=== PATIENT | female | born 1935 | race Native Hawaiian/Other Pacific Islander ===

== ENCOUNTER 2017-07-22 06:09 | Observation (INO) | payer MEDICARE, OTHER ==
[2017-07-22] MEDS ORDERED: Sodium Chloride 0.9% 1,000 ML IV SCH ×2 (07:30→13:00)
--- NOTE | 2017-07-22 07:30 | C.PDOC ---
History Of Present Illness 81 y/o female presents to the ER complaining of abdominal pain and watery diarrhea which has been present for the past 2 days. Patient states that she feels a bloating sensation. Patient denies having vomiting, dysuria, hematuria, hematochezia ,recent abx use, and recent travel. Time Seen by Provider: 07/22/17 07:12 Chief Complaint (Nursing): Abdominal Pain History Per: Patient History/Exam Limitations: no limitations Onset/Duration Of Symptoms: Days Current Symptoms Are (Timing): Still Present Severity: Moderate Associated Symptoms: Diarrhea. denies: Fever, Chills, Nausea, Vomiting, Urinary Symptoms Past Medical History Reviewed: Historical Data, Nursing Documentation, Vital Signs Vital Signs: Last Vital Signs Temp 98.7 F 07/22/17 09:32 Pulse 62 07/22/17 09:32 Resp 16 07/22/17 09:32 BP 106/65 07/22/17 09:32 Pulse Ox 96 07/22/17 09:50 - Medical History PMH: No Chronic Diseases Other Surgeries: Hx of surgeries - [employer] Procedures ENDOSC POLYPECTOMY OF LG INTEST (08/06/03) ESOPHAGOGASTRODUODENOSCOPY [EGD] W/CLOSED BIOPSY (08/06/03) Family History: States: No Known Family Hx - Social History Hx Alcohol Use: No Hx Substance Use: No - Immunization History Hx Tetanus Toxoid Vaccination: No Hx Influenza Vaccination: Yes Hx Pneumococcal Vaccination: No Review Of Systems Except As Marked, All Systems Reviewed And Found Negative. Constitutional: Negative for: Fever, Chills Gastrointestinal: Positive for: Abdominal Pain, Diarrhea. Negative for: Vomiting, Hematochezia Genitourinary: Negative for: Dysuria, Hematuria Physical Exam - Physical Exam Appears: Non-toxic, No Acute Distress Skin: Normal Color, Warm, Dry Head: Atraumatic, Normacephalic Eye(s): bilateral: Normal Inspection Nose: Normal Oral Mucosa: Moist Neck: Supple Chest: Symmetrical Cardiovascular: Rhythm Regular Respiratory: Normal Breath Sounds, No Rales, No Rhonchi, No Wheezing Gastrointestinal/Abdominal: Bowel Sounds ((+) bowel sounds), Soft, Tenderness ( diffuse tenderness), No Guarding, No Rebound Extremity: Normal ROM Neurological/Psych: Oriented x3, Normal Speech ED Course And Treatment - Laboratory Results Result Diagrams: 07/22/17 07:34 07/22/17 07:34 ECG: Interpreted By Me, Viewed By Me ECG Rhythm: Sinus Rhythm ECG Interpretation: Normal Interpretation Of ECG: NSR with normal intervals, normal axises, and no ST/ T wave abnormalities Rate From EC O2 Sat by Pulse Oximetry: 96 (RA) Pulse Ox Interpretation: Normal - Other Rad CXR X-Ray: Viewed By Me, Read By Radiologist Interpretation: PROCEDURE: CHEST RADIOGRAPH, 1 VIEW. HISTORY: Abdominal pain. COMPARISON: None available. FINDINGS: LUNGS: The lungs are well inflated and clear. PLEURA: No pneumothorax. There is blunting of the left costophrenic angle. CARDIOVASCULAR: Normal. OSSEOUS STRUCTURES: There is an old fracture deformity in the left posterior 5th rib. VISUALIZED UPPER ABDOMEN : Normal. OTHER FINDINGS: None. IMPRESSION: No active pulmonary disease. Blunting of the left costophrenic angle may represent pleural thickening or small pleural effusion Medical Decision Making Medical Decision Making: Assessment: Abdominal Pain/ Diarrhea Plan: --Labs --UA --ECG --CXR --CT - Abd & Pelv. -- IV Fluids --Protonix IV Disposition Discussed With Dr.: Lindsay Meier Doctor Will See Patient In The: Hospital Counseled Patient/Family Regarding: Studies Performed, Diagnosis - Disposition Disposition: HOSPITALIZED Disposition Time: 11:59 Condition: FAIR Forms: [facility] (Korean) - Clinical Impression Clinical Impression: Abdominal pain, Diarrhea - Scribe Statement The provider has reviewed the documentation as recorded by the Margarito Aguayo Provider Attestation: All medical record entries made by the Scribe were at my direction and personally dictated by me. I have reviewed the chart and agree that the record accurately reflects my personal performance of the history, physical exam, medical decision making, and the department course for this patient. I have also personally directed, reviewed, and agree with the discharge instructions and disposition.
[2017-07-22] MEDS ORDERED: Sodium Chloride 0.9% 1,000 ML ONE (07:35)
[2017-07-22 07:42] LABS: BASO % 0.6 % (0.0-2.0); EOS # 0.2 K/uL (0.0-0.7); EOS % 3.9 % (0.0-4.0); HEMOGLOBIN 12.6 g/dL (11.0-16.0); LYMPH # 1.6 K/uL (1.0-4.3); LYMPH % 25.9 % (20.0-40.0); MEAN CELL VOLUME 93.9 fL (81.0-99.0); MEAN CORPUSCULAR HGB CONC 34.1 g/dL (33.0-37.0); MEAN PLATELET VOLUME 7.5 fL (7.2-11.7); MONO # 0.4 K/uL (0.0-0.8); NEUT % 63.6 % (50.0-75.0); RBC 3.95 Mil/uL (3.80-5.20); RED CELL DISTRIBUTION WIDTH 13.4 % (11.5-14.5); WHITE BLOOD COUNT 6.3 K/uL (4.8-10.8)
[2017-07-22 07:53] LABS: ALB/GLOB RATIO 1.3 (1.0-2.1); ALBUMIN 4.2 g/dL (3.5-5.0); ALT/SGPT 15 U/L (9-52); AST/SGOT 29 U/L (14-36); BLOOD UREA NITROGEN 11 mg/dL (7-17); CALCIUM 8.5 mg/dl (8.6-10.4); GFR AFRICAN-AMERICAN > 60; GFR NON-AFRICAN AMERICAN > 60; LIPASE 163 U/L (23-300)
--- NOTE | 2017-07-22 08:44 | RAD ---
PROCEDURE: CHEST RADIOGRAPH, 1 VIEW HISTORY: Abdominal pain COMPARISON: None available. FINDINGS: LUNGS: The lungs are well inflated and clear. PLEURA: No pneumothorax. There is blunting of the left costophrenic angle. CARDIOVASCULAR: Normal. OSSEOUS STRUCTURES: There is an old fracture deformity in the left posterior 5th rib. VISUALIZED UPPER ABDOMEN: Normal. OTHER FINDINGS: None. IMPRESSION: No active pulmonary disease. Blunting of the left costophrenic angle may represent pleural thickening or small pleural effusion
[2017-07-22 08:54] LABS: URINE BILIRUBIN NEGATIVE (NEGATIVE); URINE BLOOD NEGATIVE (NEGATIVE); URINE CLARITY Clear (Clear); URINE COLOR Straw (YELLOW); URINE GLUCOSE (UA) NORMAL (Normal); URINE LEUKOCYTE ESTERASE NEG Leu/uL (Negative); URINE PROTEIN NEGATIVE (NEGATIVE); URINE UROBILINOGEN NORMAL mg/dL (0.2-1.0)
[2017-07-22] MEDS ORDERED: Iodixanol 320 MG/ML 100 ML BOTTLE IV ONE (09:31)
--- NOTE | 2017-07-22 11:16 | CT ---
PROCEDURE: CT scan abdomen pelvis dated 07/22/2017 HISTORY: Abdominal pain COMPARISON: None. TECHNIQUE: Contiguous axial images of the abdomen and pelvis performed following intravenous injection of approximately 100 cc Visipaque 320 contrast material. Additional 2D sagittal and coronal reformats generated. Radiation dose: Total exam DLP = 285.26 mGy-cm. This CT exam was performed using one or more of the following dose reduction techniques: Automated exposure control, adjustment of the mA and/or kV according to patient size, and/or use of iterative reconstruction technique. . Comparison made with prior CT scan of the chest abdomen pelvis 12/14/2011. FINDINGS: LOWER THORAX: Minor passive/dependent type atelectasis seen in the right lung base. There also appears to be some irregular scarring changes in the left lung base. No evidence of effusion or basilar pneumothorax Heart size within range of normal. No significant pericardial effusion. . There is a small hiatal hernia. LIVER: Liver exhibits normal size measuring approximately 11.6 cm in CC dimension. Mild diffuse fatty hepatic infiltration. There is a small approximately 10.7 x 5.3 mm elliptical shaped focus low attenuation superior aspect left lobe liver bordering the diaphragm that exhibits Hounsfield units in the mid 20s. This may represent a small hyperdense cyst or hemangioma though was present on the prior exam. This focus was larger on the prior study measuring approximately 19 mm x 12 mm however size differences could be related to the changes in patient positioning/slice placement versus true decrease in size in the lesion. Additionally, also again noted is an approximately 17 mm x 14 mm rounded/elliptical shaped heterogeneously enhancing lesion in the anterior superior margin left lobe liver that was present on the prior exam and probably represents a hemangioma of which appears relatively stable allowing for differences patient positioning and slice placement. GALLBLADDER AND BILE DUCTS: Gallbladder appears incompletely distended which may account for slight thick-walled appearance. Clinical correlation recommended to exclude the possibility of mild chronic inflammation. . No obvious intraluminal gallbladder calculi PANCREAS: Pancreas it is atrophic though otherwise grossly unremarkable without masses collections or significant ductal dilatation. No obvious pancreatic calcifications. SPLEEN: Spleen exhibits normal size and attenuation pattern without masses collections or calcifications. ADRENALS: No adrenal lesions. KIDNEYS AND URETERS: Kidneys demonstrate relatively symmetric nephrograms. . No stone or hydronephrosis. There is a tiny approximately 5.8 mm cortical cyst upper pole left kidney. Exophytic cyst arising from the lateral upper/ midpole left kidney measures approximately 2.4 x 1.9 cm. There is also a very tiny approximately 4.9 mm elliptical shaped low-attenuation medial cortex upper pole left kidney which most likely represent small cysts as well with Hounsfield units in the negative low double digits. In the BLADDER: Urinary bladder is markedly distended. In addition, there appears to be a small bladder diverticula arising from the right posterolateral margin of the urinary bladder. No evidence of intraluminal urinary bladder calculi. REPRODUCTIVE: Uterus appears unremarkable. APPENDIX: What appears to represent normal appendix best seen on axial series 3 image number [id number]. . BOWEL: Evaluation of the bowel is limited due to the lack of oral contrast material. Stomach is incompletely distended which in part accounts for thick-walled appearance. Gastritis or other intrinsic invasive wall lesion not excluded. There is a rounded approximately 15.8 x 14.5 mm soft tissue density that appears to abut and possibly arise from the serosal surface of the cardia of the stomach which also appears to abut the left adrenal gland. This focus of uncertain etiology though could conceivably represent a gastric serosal surface. Clinical correlation recommended. Slight wall thickening of the of few fluid-filled loops on distal loops of small bowel right lower quadrant of the abdomen. . There is also liquid stool in the cecum and ascending colon. Rule out colo enteritis. PERITONEUM: No evidence of free intraperitoneal air. No free or loculated fluid collections. There is a tiny fat containing umbilical hernia. LYMPH NODES: Unremarkable. No enlarged lymph nodes. VASCULATURE: Unremarkable. No aortic aneurysm. BONES: Minor multilevel degenerative spondylosis of the lower thoracic and lumbar spine. No acute compression fractures no retropulsed fragments. Vertebral bodies exhibit relatively normal stature. OTHER FINDINGS: None. IMPRESSION: Small low-attenuation focus superior aspect left lobe liver of uncertain etiology though could represent a small hyperdense cyst or hemangioma though this lesion has decreased in size from prior study. Differences could be related to differences patient positioning or slice placement. There is also a stable heterogeneous of the enhancing lesion within the anterior aspect left lobe liver felt to represent hemangioma. . Mild fatty hepatic infiltration. Several low-attenuation foci left kidney on the largest the consistent with small cysts however the 2 smaller foci probably statistically represent cysts as well. Followup interval could be performed. On the gallbladder appears incompletely distended which may in part account for slight thick-walled appearance. Rule out chronic inflammation. There is a rounded approximately 15.8 x 14.5 mm soft tissue density that appears to abut and possibly arise from the serosal surface of the cardia of the stomach which also appears to abut the left adrenal gland. This focus of uncertain etiology though could conceivably represent a gastric serosal surface. Slight wall thickening of the of few fluid-filled loops on distal loops of small bowel right lower quadrant of the abdomen. . There is also liquid stool in the cecum and ascending colon. Rule out colo enteritis. . .
[2017-07-22] MEDS ORDERED: Atropine-Diphenoxylate 0.025-2.5 mg Tab PO STA (11:30)
[2017-07-22] MEDS ORDERED: Atropine-Diphenoxylate 0.025-2.5 mg Tab ONE (11:40)
[2017-07-22] MEDS ORDERED: Belladonna-Phenobarbital PO STA (11:42)
[2017-07-22] MEDS ORDERED: Belladonna-Phenobarbital ONE (11:49)
[2017-07-22] MEDS ORDERED: Sodium Chloride 0.9% 1,000 ML IV ONE (12:47)
--- NOTE | 2017-07-22 13:21 | CP.PCM.HP ---
<Artie Amato - Last Filed: 07/22/17 13:10> History of Present Illness - History of Present Illness History of Present Illness: HPI: Patient is a 81F with a PMH of Lung cancer s/p L. partial lung resection, glucoma and cataracts who comes to the ED with a 3 day worsening watery diarrhea. Nothing makes it better but shes has not taken any medication at home for relief. PO intake makes the diarrhea worse. It is associated with diffuse abdominal pain that is crampy in nature. The pain does not radiate. It has been constant and worsening. It is associated with constant nausea but no vomiting. The diarrhea is non bloody. Denies sick contacts, strange foods or recent travel. Has had an associated Migraine but she has a long history of migraines made worse with light. Also complains of low back pain but this issue is chronic. PMH: As above PSH: Left shoulder surgery, Left lung resection FH: does not know her family as they are in [facility] and she has not been there since she was a child SH: never smoked. Does not drink alcohol. Does not use drugs. Usually able to ambulate independentyl but since she has been having diarrhea she has felt more weak then usual. 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 Since all of he rmedical problems has occured she has stopped working. 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 No children. Lives alone. 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 Multiple food allergies Present on Admission - Present on Admission Any Indicators Present on Admission: No Review of Systems - Review of Systems Review of Systems: Per HPI Past Patient History - Past Social History Smoking Status: Never Smoked - PULMONARY Hx Respiratory Disorders: Yes (Lt. lung Cancer 2011 w/ sx.) - PSYCHIATRIC Hx Substance Use: No - SURGICAL HISTORY Hx Surgeries: Yes (Lt. Lobectomy 2011) - ANESTHESIA Hx Anesthesia: Yes Hx Anesthesia Reactions: No Meds Allergies/Adverse Reactions: Allergies Allergy/AdvReac Type Severity Reaction Status Date / Time milk AdvReac HEADACHE Verified 07/22/17 06:29 peanut AdvReac HEADACHE Verified 07/22/17 06:29 tomato AdvReac HEADACHE Verified 07/22/17 06:29 chocolate AdvReac HEADACHE Uncoded 07/22/17 06:29 Physical Exam - Constitutional Appears: Well - Head Exam Head Exam: ATRAUMATIC, NORMAL INSPECTION, NORMOCEPHALIC - Eye Exam Eye Exam: EOMI, Normal appearance, PERRL Pupil Exam: NORMAL ACCOMODATION, PERRL - ENT Exam ENT Exam: Mucous Membranes Moist, Normal Exam - Neck Exam Neck exam: Positive for: Normal Inspection - Respiratory Exam Respiratory Exam: Clear to Auscultation Bilateral, NORMAL BREATHING PATTERN - Cardiovascular Exam Cardiovascular Exam: REGULAR RHYTHM - GI/Abdominal Exam GI & Abdominal Exam: Normal Bowel Sounds, Soft, Tenderness (diffuse mild tenderness to palpation). absent: Distended - Extremities Exam Extremities exam: Positive for: normal inspection - Back Exam Back exam: NORMAL INSPECTION - Neurological Exam Neurological exam: Alert, CN II-XII Intact, Normal Gait, Oriented x3, Reflexes Normal - Psychiatric Exam Psychiatric exam: Normal Affect, Normal Mood - Skin Skin Exam: Dry, Intact, Normal Color, Warm Results - Vital Signs Recent Vital Signs: Last Vital Signs Temp 98.7 F 07/22/17 12:19 Pulse 62 07/22/17 12:19 Resp 18 07/22/17 12:19 BP 115/57 L 07/22/17 12:19 Pulse Ox 99 07/22/17 12:19 - Labs Result Diagrams: 07/22/17 07:34 07/22/17 07:34 Labs: Laboratory Results - last 24 hr 07/22/17 07/22/17 07/22/17 07:34 07:34 08:38 WBC 6.3 RBC 3.95 Hgb 12.6 Hct 37.1 MCV 93.9 MCH 32.0 H MCHC 34.1 RDW 13.4 Plt Count 210 MPV 7.5 Neut % (Auto) 63.6 Lymph % (Auto) 25.9 Trinity % (Auto) 6.0 Eos % (Auto) 3.9 Baso % (Auto) 0.6 Neut # (Auto) 4.0 Lymph # (Auto) 1.6 Trinity # (Auto) 0.4 Eos # (Auto) 0.2 Baso # (Auto) 0.0 Sodium 143 Potassium 4.2 Chloride 107 Carbon Dioxide 25 Anion Gap 15 BUN 11 Creatinine 0.8 Est GFR ( Amer) > 60 Est GFR (Non-Af Amer) > 60 Random Glucose 84 Calcium 8.5 L Total Bilirubin 0.4 AST 29 ALT 15 Alkaline Phosphatase 67 Troponin I < 0.0120 Total Protein 7.3 Albumin 4.2 Globulin 3.1 Albumin/Globulin Ratio 1.3 Lipase 163 Urine Color Straw Urine Clarity Clear Urine pH 6.0 Ur Specific Jasper 1.004 Urine Protein Negative Urine Glucose (UA) Normal Urine Ketones Negative Urine Blood Negative Urine Nitrate Negative Urine Bilirubin Negative Urine Urobilinogen Normal Ur Leukocyte Esterase Neg Urine WBC (Auto) 1 Urine RBC (Auto) < 1 Assessment & Plan (1) Gastroenteritis Assessment and Plan: CT suggestive of enteritis Reglan PRN Multivitamin NS @ 90 Banana bag x1 PT/OT for weakness Shirrer consult as patient has multiple food intolerance Status: Acute Priority: Medium <Lindsay Meier V - Last Filed: 07/22/17 13:53> Results - Vital Signs Recent Vital Signs: Last Vital Signs Temp 98.1 F 07/22/17 13:22 Pulse 71 07/22/17 13:22 Resp 20 07/22/17 13:22 BP 122/61 07/22/17 13:22 Pulse Ox 98 07/22/17 13:22 - Labs Result Diagrams: 07/22/17 07:34 07/22/17 07:34 Labs: Laboratory Results - last 24 hr 07/22/17 07/22/17 07/22/17 07:34 07:34 08:38 WBC 6.3 RBC 3.95 Hgb 12.6 Hct 37.1 MCV 93.9 MCH 32.0 H MCHC 34.1 RDW 13.4 Plt Count 210 MPV 7.5 Neut % (Auto) 63.6 Lymph % (Auto) 25.9 Trinity % (Auto) 6.0 Eos % (Auto) 3.9 Baso % (Auto) 0.6 Neut # (Auto) 4.0 Lymph # (Auto) 1.6 Trinity # (Auto) 0.4 Eos # (Auto) 0.2 Baso # (Auto) 0.0 Sodium 143 Potassium 4.2 Chloride 107 Carbon Dioxide 25 Anion Gap 15 BUN 11 Creatinine 0.8 Est GFR ( Amer) > 60 Est GFR (Non-Af Amer) > 60 Random Glucose 84 Calcium 8.5 L Total Bilirubin 0.4 AST 29 ALT 15 Alkaline Phosphatase 67 Troponin I < 0.0120 Total Protein 7.3 Albumin 4.2 Globulin 3.1 Albumin/Globulin Ratio 1.3 Lipase 163 Urine Color Straw Urine Clarity Clear Urine pH 6.0 Ur Specific Jasper 1.004 Urine Protein Negative Urine Glucose (UA) Normal Urine Ketones Negative Urine Blood Negative Urine Nitrate Negative Urine Bilirubin Negative Urine Urobilinogen Normal Ur Leukocyte Esterase Neg Urine WBC (Auto) 1 Urine RBC (Auto) < 1 Attending/Attestation - Attestation I have personally seen and examined this patient.: Yes I have fully participated in the care of the patient.: Yes I have reviewed all pertinent clinical information: Yes Notes (Text): Patient seen, examined, and case discussed with medical scientific officer. Patient reports 3 day history of diarrhea, about 3-6 bowel movements, liquid, nonbloody, denies recent travel/hospitalization/take out food. patient reports she has been afraid to eat anything and feels quite weak. patient reports she went to his primary care doctors office because of the weakness and the abdominal pain which prompted her to come to the hospital. Patient reports she feels afraid to eat because of the diarrhea. Patient reports she does not have any children and has and she lives on her own and visited by her classmates. patient reports she has multiple food sensitivities. Patient has never had a colonoscopy; she reports when she attempt day prior she had a syncopal episodes reports she was "close to " and has never had one. 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 Patient regularly has outpatient pet scans with Dr. Hernandez for known history of lung cancer s/p lobectomy and is not on current treatment for the lung cancer. Patient reports history of migraine headaches, controlled by NSAIDs typically, she reports her triggers are food. patient also has known hx of glaucoma wherein she uses eye drops. Assessment/Plan 1) Gastroenteritis Assessment/Plan * Give IV fluids * CT Abdomen/Pelvis w IV contrast (07/22/17): small low attentuation focus superior aspect left lobe liver of unknown etiology. heterogenous of the enhancing lesion within the anterior aspect of left lobe. Mild fatty hepatic infiltration. low-attentuation foci left kidney~small cysts. Gallbladder appears appears incompletely distended which may in part of slight thick walled appearance. Rounded ~15.8 X14.5mm soft tissue density serosal surface of the cardiac of the stomach abut the left adrenal gland. Slight wall thickening of the few fluid filled loops on distal loops of small bowel right lower quadrant of the abdomen. Liquid stool in the cecum and ascending colon. * Chest xray: no active disease * Prior Pet scan (06/12/16): no evidence of FDG avid tumor, nodule, or lymphadenopathy in the chest. No evidence of tumor recurrence or disrant metastasisis.. 4 X3.1 cm cystic lesion see at right adenexa has increased in size. possible of right ovarian cystic neoplasm should be considered. * Reglan 10mg IV Q6H PRN nausea * Pepcid 20mg PO BID * Diet as tolerated 2) Headache History of Migraine Headaches * Order for Head CT w/o contrast 3) History of Lung Cancer * Patient follows with Dr. Clark and has outpatient pet scans; last pet scan from May 2016 4) Dehydration * IV fluids 5) Prophylactic Measure * PT/OT evaluation * Shirrer referral * Pepcid 20mg PO BID * Heparin 5000 units subq8H
[2017-07-22 13:23] VITALS: RESP 20
[2017-07-22] MEDS ORDERED: Folic Acid 1 MG, Thiamine 100 MG, Multivitamin (MVI) 10 ML in Dextrose 5% In Water 1,00... IV SCH (13:30)
--- NOTE | 2017-07-22 16:09 | CT ---
PROCEDURE: CT HEAD WITHOUT CONTRAST. HISTORY: Headache COMPARISON: None available. TECHNIQUE: Axial computed tomography images were obtained through the head/brain without intravenous contrast. Radiation dose: Total exam DLP = 803.77 mGy-cm. This CT exam was performed using one or more of the following dose reduction techniques: Automated exposure control, adjustment of the mA and/or kV according to patient size, and/or use of iterative reconstruction technique. FINDINGS: HEMORRHAGE: No intracranial hemorrhage. BRAIN: There are mild chronic microangiopathic changes. There is no mass, mass effect or abnormal extra-axial fluid collection. VENTRICLES: There is mild age-related global parenchymal volume loss and proportionate enlargement of the ventricles and cortical sulci. CALVARIUM: The skull base and calvarium are normal. PARANASAL SINUSES: Predominantly clear. MASTOID AIR CELLS: Predominantly clear. OTHER FINDINGS: None. IMPRESSION: No acute intracranial abnormality. Mild chronic microangiopathic changes and mild age-related global parenchymal volume loss.
[2017-07-22] MEDS: Enoxaparin 40 mg Syringe SC SCH (16:58)
[2017-07-22] MEDS: Sodium Chloride 0.9% 1,000 ML IV SCH (17:30)
[2017-07-22] MEDS: Brimonidine 0.2% Opth Sol (5ml) OU SCH (18:40)
[2017-07-22] MEDS ORDERED: Dorzolamide 2% Opht Sol 10ml OU SCH (22:00)
[2017-07-23] MEDS: Sodium Chloride 0.9% 1,000 ML IV SCH ×3 (01:29→12:05)
[2017-07-23 06:45] LABS: BASO % 0.9 % (0.0-2.0); EOS # 0.3 K/uL (0.0-0.7); EOS % 6.4 % (0.0-4.0); HEMOGLOBIN 11.7 g/dL (11.0-16.0); LYMPH # 1.9 K/uL (1.0-4.3); LYMPH % 34.1 % (20.0-40.0); MEAN CELL VOLUME 93.4 fL (81.0-99.0); MEAN CORPUSCULAR HEMOGLOBIN 31.8 pg (27.0-31.0); MEAN PLATELET VOLUME 7.5 fL (7.2-11.7); MONO # 0.4 K/uL (0.0-0.8); MONO % 7.9 % (0.0-10.0); NEUT # 2.8 K/uL (1.8-7.0); NEUT % 50.7 % (50.0-75.0); NRBC % 0.1 % (0.0-2.0); RBC 3.67 Mil/uL (3.80-5.20); RED CELL DISTRIBUTION WIDTH 13.7 % (11.5-14.5); WHITE BLOOD COUNT 5.5 K/uL (4.8-10.8)
[2017-07-23 06:53] LABS: ALB/GLOB RATIO 1.2 (1.0-2.1); ALBUMIN 3.3 g/dL (3.5-5.0); ALT/SGPT 7 U/L (9-52); AST/SGOT 21 U/L (14-36); BLOOD UREA NITROGEN 5 mg/dL (7-17); CALCIUM 7.5 mg/dl (8.6-10.4); GFR AFRICAN-AMERICAN > 60; GFR NON-AFRICAN AMERICAN > 60
[2017-07-23] MEDS ORDERED: Potassium Chloride 20 mEq ER Tab PO SCH (07:15)
[2017-07-23] MEDS ORDERED: Potassium Chloride 20 mEq ER Tab PO ONE (07:17)
[2017-07-23] MEDS ORDERED: Potassium Phosphate 15 MMOLE in Sodium Chloride 0.9% 250 ML IV ONE (08:00)
[2017-07-23] MEDS: Enoxaparin 40 mg Syringe SC SCH (09:57)
[2017-07-23] MEDS: Brimonidine 0.2% Opth Sol (5ml) OU SCH (09:58)
[2017-07-23] MEDS ORDERED: Aritificial Tears (15ml) OU SCH (10:00)
[2017-07-23] MEDS ORDERED: Multiple Vitamins Oral Solution PO SCH (10:00)
[2017-07-23] MEDS ORDERED: Pneumococcal 23-Valent Vaccine IM ONE (10:00)
--- NOTE | 2017-07-23 13:19 | CP.PCM.DIS ---
<Artie Amato - Last Filed: 07/23/17 13:16> Provider - Provider Date of Admission: 07/22/17 11:58 Attending physician: Lindsay Meier DO Primary care physician: Maggie Consults: None Time Spent in preparation of Discharge (in minutes): 45 Diagnosis - Discharge Diagnosis (1) Gastroenteritis Status: Resolved Priority: Medium Hospital Course - Lab Results Lab Results: Most Recent Lab Values WBC 5.5 K/uL (4.8-10.8) 07/23/17 06:29 RBC 3.67 Mil/uL (3.80-5.20) L 07/23/17 06:29 Hgb 11.7 g/dL (11.0-16.0) 07/23/17 06:29 Hct 34.3 % (34.0-47.0) 07/23/17 06:29 MCV 93.4 fL (81.0-99.0) 07/23/17 06:29 MCH 31.8 pg (27.0-31.0) H 07/23/17 06:29 MCHC 34.0 g/dL (33.0-37.0) 07/23/17 06:29 RDW 13.7 % (11.5-14.5) 07/23/17 06:29 Plt Count 186 K/uL (130-400) 07/23/17 06:29 MPV 7.5 fL (7.2-11.7) 07/23/17 06:29 Neut % (Auto) 50.7 % (50.0-75.0) 07/23/17 06: Lymph % (Auto) 34.1 % (20.0-40.0) 07/23/17 06:29 [place] % (Auto) 7.9 % (0.0-10.0) 07/23/17 06:29 Eos % (Auto) 6.4 % (0.0-4.0) H 07/23/17 06:29 Baso % (Auto) 0.9 % (0.0-2.0) 07/23/17 06:29 Neut # (Auto) 2.8 K/uL (1.8-7.0) 07/23/17 06:29 Lymph # (Auto) 1.9 K/uL (1.0-4.3) 07/23/17 06:29 [place] # (Auto) 0.4 K/uL (0.0-0.8) 07/23/17 06: Eos # (Auto) 0.3 K/uL (0.0-0.7) 07/23/17 06:29 Baso # (Auto) 0.0 K/uL (0.0-0.2) 07/23/17 06:29 Sodium 145 mmol/L (132-148) 07/23/17 06:29 Potassium 3.3 mmol/L (3.6-5.2) L 07/23/17 06:29 Chloride 112 mmol/L (98-107) H 07/23/17 06: Carbon Dioxide 24 mmol/L (22-30) 07/23/17 06:29 Anion Gap 12 (10-20) 07/23/17 06:29 BUN 5 mg/dL (7-17) L 07/23/17 06: Creatinine 0.6 mg/dL (0.7-1.2) L 07/23/17 06:29 Est GFR ( Amer) > 60 07/23/17 06:29 Est GFR (Non-Af Amer) > 60 07/23/17 06:29 Random Glucose 83 mg/dL (65-105) 07/23/17 06:29 Calcium 7.5 mg/dl (8.6-10.4) L 07/23/17 06: Phosphorus 1.1 mg/dL (2.5-4.5) L 07/23/17 06: Magnesium 2.0 mg/dL (1.6-2.3) 07/23/17 06: Total Bilirubin 0.3 mg/dL (0.2-1.3) 07/23/17 06:29 AST 21 U/L (14-36) 07/23/17 06: ALT 7 U/L (9-52) L D 07/23/17 06:29 Alkaline Phosphatase 57 U/L (38-126) 07/23/17 06:29 Troponin I < 0.0120 ng/mL (0.00-0.120) 07/22/17 07:34 Total Protein 6.0 g/dL (6.3-8.3) L 07/23/17 06:29 Albumin 3.3 g/dL (3.5-5.0) L D 07/23/17 06:29 Globulin 2.7 gm/dL (2.2-3.9) 07/23/17 06:29 Albumin/Globulin Ratio 1.2 (1.0-2.1) 07/23/17 06:29 Lipase 163 U/L (23-300) 07/22/17 07:34 Urine Color Straw (YELLOW) 07/22/17 08:38 Urine Clarity Clear (Clear) 07/22/17 08:38 Urine pH 6.0 (5.0-8.0) 07/22/17 08:38 Ur Specific [place] 1.004 (1.003-1.030) 07/22/17 08:38 Urine Protein Negative mg/dL (NEGATIVE) 07/22/17 08:38 Urine Glucose (UA) Normal mg/dL (Normal) 07/22/17 08:38 Urine Ketones Negative mg/dL (NEGATIVE) 07/22/17 08:38 Urine Blood Negative (NEGATIVE) 07/22/17 08:38 Urine Nitrate Negative (NEGATIVE) 07/22/17 08:38 Urine Bilirubin Negative (NEGATIVE) 07/22/17 08:38 Urine Urobilinogen Normal mg/dL (0.2-1.0) 07/22/17 08:38 Ur Leukocyte Esterase Neg Oscar/uL (Negative) 07/22/17 08:38 Urine WBC (Auto) 1 /hpf (0-5) 07/22/17 08:38 Urine RBC (Auto) < 1 /hpf (0-3) 07/22/17 08:38 - Hospital Course Hospital Course: On admission: Patient is a 81F with a PMH of Lung cancer s/p L. partial lung resection, glucoma and cataracts who comes to the ED with a 3 day worsening watery diarrhea. Nothing makes it better but shes has not taken any medication at home for relief. PO intake makes the diarrhea worse. It is associated with diffuse abdominal pain that is crampy in nature. The pain does not radiate. It has been constant and worsening. It is associated with constant nausea but no vomiting. The diarrhea is non bloody. Denies sick contacts, strange foods or recent travel. Has had an associated Migraine but she has a long history of migraines made worse with light. Also complains of low back pain but this issue is chronic. Hospital course: Patient was given fluids consisting of NS and one banana bag. Electrolyes were repleated. Tolerating soft diet with no more episodes of diarrhea. Afebrile. Abdominal pain resolving. Patient able to ambulate. Seen by PT who advises for home PT. A prescription was provided to the patient. Instructed to follow up with her oncologist for annual PET. Instructed to follow up with PMD to review CT results. Patient was provided with CD of her imaging. Discharge Exam - Head Exam Head Exam: ATRAUMATIC, NORMAL INSPECTION, NORMOCEPHALIC - Eye Exam Eye Exam: EOMI, Normal appearance, PERRL Pupil Exam: NORMAL ACCOMODATION, PERRL - Respiratory Exam Respiratory Exam: Clear to PA & Lateral, NORMAL BREATHING PATTERN, UNREMARKABLE - Cardiovascular Exam Cardiovascular Exam: REGULAR RHYTHM. absent: Tachycardia - GI/Abdominal Exam GI & Abdominal Exam: Normal Bowel Sounds, Soft. absent: Distended, Tenderness - Neurological Exam Neurological exam: Alert, CN II-XII Intact, Normal Gait, Oriented x3, Reflexes Normal - Psychiatric Exam Psychiatric exam: Normal Affect, Normal Mood - Skin Skin Exam: Dry, Intact, Normal Color, Warm Discharge Plan - Discharge Medications Prescriptions: Multivitamin [Multi-Vitamin Daily] 1 each PO DAILY #30 tablet Ondansetron ODT [Zofran ODT] 4 mg PO Q8 PRN #10 odt PRN Reason: Nausea/Vomiting - Follow Up Plan Condition: FAIR Disposition: HOME/ ROUTINE Instructions: Acute Abdomen (Belly Pain), Adult (DC), Gastroenteritis (DC) Additional Instructions: Please follow up with Dr. Malagon for repeat PET scan. Please follow up with your primary care doctor in 7-[address] to [address] scan. I have attached a copy of your CT report as well as a CD. Referrals: Jasmine Coon MD [Staff Provider] - Lissette Malagon MD [Staff Provider] - <Lindsay Meier V - Last Filed: 07/23/17 15:01> Provider - Provider Date of Admission: 07/22/17 11:58 Attending physician: Lindsay Meier DO Hospital Course - Lab Results Lab Results: Most Recent Lab Values WBC 5.5 K/uL (4.8-10.8) 07/23/17 06: RBC 3.67 Mil/uL (3.80-5.20) L 07/23/17: Hgb 11.7 g/dL (11.0-16.0) 07/23/17: Hct 34.3 % (34.0-47.0) 07/23/17: MCV 93.4 fL (81.0-99.0) 07/23/17 06: MCH 31.8 pg (27.0-31.0) H 07/23/17 06: MCHC 34.0 g/dL (33.0-37.0) 07/23/17: RDW 13.7 % (11.5-14.5) 07/23/17: Plt Count 186 K/uL (130-400) 07/23/17: MPV 7.5 fL (7.2-11.7) 07/23/17: Neut % (Auto) 50.7 % (50.0-75.0) 07/23/17: Lymph % (Auto) 34.1 % (20.0-40.0) 07/23/17: [place] % (Auto) 7.9 % (0.0-10.0) 07/23/17: Eos % (Auto) 6.4 % (0.0-4.0) H 07/23/17: Baso % (Auto) 0.9 % (0.0-2.0) 07/23/17: Neut # (Auto) 2.8 K/uL (1.8-7.0) 07/23/17: Lymph # (Auto) 1.9 K/uL (1.0-4.3) 07/23/17: [place] # (Auto) 0.4 K/uL (0.0-0.8) 07/23/17: Eos # (Auto) 0.3 K/uL (0.0-0.7) 07/23/17: Baso # (Auto) 0.0 K/uL (0.0-0.2) 07/23/17: Sodium 145 mmol/L (132-148) 07/23/17 06:29 Potassium 3.3 mmol/L (3.6-5.2) L 07/23/17 06:29 Chloride 112 mmol/L (98-107) H 07/23/17 06:29 Carbon Dioxide 24 mmol/L (22-30) 07/23/17 06:29 Anion Gap 12 (10-20) 07/23/17 06:29 BUN 5 mg/dL (7-17) L 07/23/17 06:29 Creatinine 0.6 mg/dL (0.7-1.2) L 07/23/17 06:29 Est GFR ( Amer) > 60 07/23/17 06:29 Est GFR (Non-Af Amer) > 60 07/23/17 06:29 Random Glucose 83 mg/dL (65-105) 07/23/17 06:29 Calcium 7.5 mg/dl (8.6-10.4) L 07/23/17 06:29 Phosphorus 1.1 mg/dL (2.5-4.5) L 07/23/17 06:29 Magnesium 2.0 mg/dL (1.6-2.3) 07/23/17 06:29 Total Bilirubin 0.3 mg/dL (0.2-1.3) 07/23/17 06:29 AST 21 U/L (14-36) 07/23/17 06:29 ALT 7 U/L (9-52) L D 07/23/17 06:29 Alkaline Phosphatase 57 U/L (38-126) 07/23/17 06:29 Troponin I < 0.0120 ng/mL (0.00-0.120) 07/22/17 07:34 Total Protein 6.0 g/dL (6.3-8.3) L 07/23/17 06:29 Albumin 3.3 g/dL (3.5-5.0) L D 07/23/17 06:29 Globulin 2.7 gm/dL (2.2-3.9) 07/23/17 06:29 Albumin/Globulin Ratio 1.2 (1.0-2.1) 07/23/17 06:29 Lipase 163 U/L (23-300) 07/22/17 07:34 Urine Color Straw (YELLOW) 07/22/17 08:38 Urine Clarity Clear (Clear) 07/22/17 08:38 Urine pH 6.0 (5.0-8.0) 07/22/17 08:38 Ur Specific [place] 1.004 (1.003-1.030) 07/22/17 08:38 Urine Protein Negative mg/dL (NEGATIVE) 07/22/17 08:38 Urine Glucose (UA) Normal mg/dL (Normal) 07/22/17 08:38 Urine Ketones Negative mg/dL (NEGATIVE) 07/22/17 08:38 Urine Blood Negative (NEGATIVE) 07/22/17 08:38 Urine Nitrate Negative (NEGATIVE) 07/22/17 08:38 Urine Bilirubin Negative (NEGATIVE) 07/22/17 08:38 Urine Urobilinogen Normal mg/dL (0.2-1.0) 07/22/17 08:38 Ur Leukocyte Esterase Neg Oscar/uL (Negative) 07/22/17 08:38 Urine WBC (Auto) 1 /hpf (0-5) 07/22/17 08:38 Urine RBC (Auto) < 1 /hpf (0-3) 07/22/17 08:38 Attending/Attestation - Attestation I have personally seen and examined this patient.: Yes I have fully participated in the care of the patient.: Yes I have reviewed all pertinent clinical information, including history, physical exam and plan: Yes Notes (Text): Patient seen, examined, and case discussed with day-time resident. Patient seen this morning. Patient reports she is feeling very energetic. Patient reports she has appetite and wants to eat some broccoli. Patient has no more diarrheal movements. Patient reports abdominal pain is less. Patient's diet was advanced to soft today. Patient tolerated lunch today. Electrolytes repleted prior to discharge. I did discussed with the patient in regards to abnormality noted on CT, as well as discussed with her PMD, Dr Eduardo Higginbotham. She will f/u with her heme-oncologist , Dr. Malagon since she has not had her yearly pet scan usually for June/July. I spoke with PT, recommended for home PT and OT. patient has a prior wrist injury where in she has surgery one year ago. Prescriptions upon discharge: 1) Zofran 4mg ODT Q8H PRN nausea (10 pills) 2) Multivitamin 1 tab PO daily (30 tabs) CD created of her CT Abdomen/Pelvis given to patient upon discharge when she follows-up with her PMD and field agronomist/oncologist. This is a summary of patient's hospitalization. Please see EMR for full details of record. Discharge Diagnoses: 1) Gastroenteritis-->resolved Assessment/Plan * Given IV fluids * CT Abdomen/Pelvis w IV contrast (07/22/17): small low attentuation focus superior aspect left lobe liver of unknown etiology. heterogenous of the enhancing lesion within the anterior aspect of left lobe. Mild fatty hepatic infiltration. low-attentuation foci left kidney~small cysts. Gallbladder appears appears incompletely distended which may in part of slight thick walled appearance. Rounded ~15.8 X14.5mm soft tissue density serosal surface of the cardiac of the stomach abut the left adrenal gland. Slight wall thickening of the few fluid filled loops on distal loops of small bowel right lower quadrant of the abdomen. Liquid stool in the cecum and ascending colon. * Chest xray: no active disease * Prior Pet scan (06/12/16): no evidence of FDG avid tumor, nodule, or lymphadenopathy in the chest. No evidence of tumor recurrence or disrant metastasis. 4 X3.1 cm cystic lesion see at right adenexa has increased in size. possible of right ovarian cystic neoplasm should be considered. * Reglan 10mg IV Q6H PRN nausea * Pepcid 20mg PO BID * Diet as tolerated 2) Headache-->resolved History of Migraine Headaches-->chronic * No acute findings noted on CT Head * Headache resolve 3) History of Lung Cancer-->chronic * Patient follows with Dr. Clark and has outpatient pet scans; last pet scan from May 2016 * CD created of her CT Abdomen/Pelvis given to patient upon discharge when she follows-up with her PMD and field agronomist/oncologist. 4) Dehydration-->resolved * Resolved 5) Prophylactic Measure * PT/OT evaluation * [facility] referral * Pepcid 20mg PO BID * Heparin 5000 units subq8H
--- NOTE | 2017-07-23 13:42 | CARD ---
APPROVED REPORT EKG Measurement Heart [id number] <Conclusion> Normal sinus rhythm Normal ECG
[2017-07-23 16:55] VITALS: BP 130/72; PULSE 65; TEMP 98.5; O2SAT 96
[2017-07-23] MEDS ORDERED: Latanoprost 2.5 ml Opht Soln OU SCH (22:00)
== END 2017-07-23 16:45 | disposition home or self-care (01) ==
LOC: C.ER 06:09 → C.9E 11:58 → C.3T 12:09
PROVIDERS: ADMIT Hospitalist; ATTEND Hospitalist
DX: K52.9 Noninfective gastroenteritis and colitis, unspecified (principal); M54.5 Low back pain; E86.0 Dehydration; G43.909 Migraine, unspecified, not intractable, without status migrainosus; H26.9 Unspecified cataract; Z85.118 Personal history of other malignant neoplasm of bronchus and lung
CPT/HCPCS: 36415; 70450; 71045; 74177; 80053; 81001; 83690; 83735; 84100; 84484; 85025; 93005; 96374; 97116; 97162; 97166; 97530; 99285; C9113; G0378; G8978; G8979; G8987; G8988; J1650; J2765; J3411; J7030; J7070; Q9967

== ENCOUNTER 2017-08-22 07:24 | Day surgery (SDC) | payer MEDICARE, OTHER ==
[2017-08-20 13:05] VITALS: BMI 18.1
[2017-08-22] MEDS ORDERED: Propofol 10 mg/ml Inj (20 ML) ONE (09:08)
--- NOTE | 2017-08-22 09:09 | CP.SDSHP ---
Same Day Surgery H & P - History Proposed Procedure: endoscopy Pre-Op Diagnosis: gastric mass, gastritis - Previous Medical/Surgical History Comments: lung cancer - Allergies Allergies: Allergies banana Adverse Reaction (Verified 07/22/17 15:13) HEADACHE cheese Adverse Reaction (Verified 08/22/17 08:02) RASH milk Adverse Reaction (Verified 07/22/17 06:29) HEADACHE peanut Adverse Reaction (Verified 07/22/17 06:29) HEADACHE potato Adverse Reaction (Verified 08/22/17 08:02) RASH tomato Adverse Reaction (Verified 07/22/17 06:29) HEADACHE chocolate Adverse Reaction (Uncoded 07/22/17 06:29) HEADACHE dairy products Adverse Reaction (Uncoded 08/22/17 08:02) RASH - Physical Exam Vital Signs: Vital Signs 08/22/17 07:43 Temperature 98.9 F Pulse Rate 64 Respiratory 19 Rate Blood Pressure 111/46 L O2 Sat by Pulse 98 Oximetry Mental Status: Alert & Oriented x3 Neuro: WNL Heart: WNL Lungs: WNL GI: WNL - Impression Impression: gastritsi Pt. Evaluated Today:Candidate for Anesthesia & Procedure: Yes - Date & Time Date: 08/22/17 Time: 09:09 Short Stay Discharge - Short Stay Discharge Admitting Diagnosis/Reason for Visit: GASTRITIS Disposition: HOME/ ROUTINE
[2017-08-22 12:10] VITALS: TEMP 97; O2SAT 100
[2017-08-22 12:18] VITALS: BP 130/64; PULSE 62; RESP 18
== END 2017-08-22 11:00 | disposition home or self-care (01) ==
LOC: C.ENDO 07:24
PROVIDERS: ATTEND Internal Medicine Gastroenterology
DX: R93.3 Abnormal findings on diagnostic imaging of other parts of digestive tract (principal); K29.00 Acute gastritis without bleeding; K29.50 Unspecified chronic gastritis without bleeding; B96.81 Helicobacter pylori [H. pylori] as the cause of diseases classified elsewhere; Z85.118 Personal history of other malignant neoplasm of bronchus and lung; K31.89 Other diseases of stomach and duodenum
CPT/HCPCS: 43239; 88305; J2704